=== PATIENT | male | born 1960 | race Caucasian/White ===

== ENCOUNTER 2017-09-04 07:09 | Emergency (ER) | payer OTHER ==
[~2017-09-04] VITALS: Ht 185.4 cm; Wt 120.0 kg
[~2017-09-04 07:09] MED LIST: 1-ME1LIQ PO; CENTTAB9 PO; LISI10TA PO; PRAV40TA2 PO; VENTAER INH; VIAG100T PO
[2017-09-04 07:44] VITALS: BP 140/99; PULSE 80; RESP 18; TEMP 97.6; O2SAT 97
[2017-09-04] MEDS ORDERED: KETOROLAC TROMETHAMINE 60 MG/2 ML (IM) VIAL IM ONE (08:00)
[2017-09-04] MEDS ORDERED: ORPHENADRINE INJ 60 MG/2 ML AMP IM ONE (08:00)
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
[2017-09-04] MEDS ORDERED: ROBA500T PO (08:52)
[2017-09-04] MEDS ORDERED: IBUP1TAB7 PO (08:52)
== END 2017-09-04 09:05 | disposition home or self-care (01) ==
LOC: NEPD 07:09
DX: S39.012A Strain of muscle, fascia and tendon of lower back, initial encounter (principal); V89.2XXA Person injured in unspecified motor-vehicle accident, traffic, initial encounter
CPT/HCPCS: 72100; 96372; 99283; J1885; J2360